=== PATIENT | female | born 1995 | race African-American/Black ===

== ENCOUNTER 2018-05-08 20:39 | Emergency (ER) | payer BC, OTHER ==
[2018-05-08 20:48] VITALS: BP 124/71
--- NOTE | 2018-05-08 20:59 | ED ---
Lower Extremity - HPI Summary HPI Summary: 22 year old female presents with left great toe injury today. She states that she feel down the stairs. She has an abrasion to her left jasmine. pain in the IP joint of left toe. no ankle pain. is able to ambulate. no numbness or tingling. no other injury. - History of Current Complaint Chief Complaint: UCLowerExtremity Stated Complaint: TOE INJURY Time Seen by Provider: 05/08/18 20:42 Hx Last Menstrual Period: has mirena - irregular. last was 1 month ago Pain Intensity: 4 - Allergies/Home Medications Allergies/Adverse Reactions: Allergies Allergy/AdvReac Type Severity Reaction Status Date / Time No Known Allergies Allergy Verified 05/08/18 20:49 Home Medications: Home Medications Levonorgestrel (Iud) [Mirena IUD] 20 mcg 05/08/18 [History] PMH/Surg Hx/FS Hx/Imm Hx Endocrine/Hematology History: Denies: Hx Diabetes, Hx Thyroid Disease Cardiovascular History: Denies: Hx Congestive Heart Failure, Hx Hypertension Respiratory History: Denies: Hx Asthma, Hx Chronic Obstructive Pulmonary Disease (COPD) GI History: Denies: Hx Ulcer - Immunization History Date of Tetanus Vaccine: Up to date Date of Influenza Vaccine: None Infectious Disease History: No Infectious Disease History: Denies: Hx Hepatitis, Hx Human Immunodeficiency Virus (HIV), Traveled Outside the [place] in Last 30 Days - Family History Known Family History: Negative: Diabetes - Social History Alcohol Use: Rare Substance Use Type: Reports: None Smoking Status (MU): Never Smoked Tobacco Review of Systems Negative: Fever Negative: Chest Pain Negative: Shortness Of Breath Positive: Myalgia - left great toe injury All Other Systems Reviewed And Are Negative: Yes Physical Exam Triage Information Reviewed: Yes Vital Signs On Initial Exam: Initial Vitals Temp Pulse Resp BP Pulse Ox 99.7 F 73 14 124/71 100 05/08/18 20:44 05/08/18 20:44 05/08/18 20:44 05/08/18 20:44 05/08/18 20:44 Vital Signs Reviewed: Yes Appearance: Positive: Well-Appearing Skin: Positive: Warm, Dry, Other - abrasion to left jasmine Head/Face: Positive: Normal Head/Face Inspection Eyes: Positive: Normal, Conjunctiva Clear ENT: Positive: Pharynx normal Respiratory/Lung Sounds: Positive: Clear to Auscultation, Breath Sounds Present Cardiovascular: Positive: Normal, RRR Musculoskeletal: Positive: Limited @ - left great toe, Other - tenderness left great toe, capillary refill<2 secs Neurological: Positive: Normal Psychiatric: Positive: Normal Diagnostics - Vital Signs Vital Signs Temp Pulse Resp BP Pulse Ox 05/08/18 20:44 99.7 F 73 14 124/71 100 - Laboratory Lab Statement: Any lab studies that have been ordered have been reviewed, and results considered in the medical decision making process. - Radiology toe Radiology Interpretation Completed By: ED Physician Summary of Radiographic Findings: no fx Lower Extremity Course/Dx - Course Course Of Treatment: 22 year old female presents with left great toe injury today after falling down the stairs. pain in IP joint. neuorvascular intact. gave bandaide for abrasion of left jasmine. able to ambulate. no other injury. xray shows no fx. told to treat with rice. patient understand and agrees with plan. - Diagnoses Differential Diagnosis/HQI/PQRI: Positive: Fracture (Closed), Sprain, Strain Provider Diagnoses: Injury of left great toe Discharge - Sign-Out/Discharge Documenting (check all that apply): Patient Departure All imaging exams completed and their final reports reviewed: No - Discharge Plan Condition: Good Disposition: HOME Patient Education Materials: R.I.C.E. Treatment (ED) Referrals: Bernardino Pineda MD [Medical Doctor] - [facility] [place] [facility] [place]] Additional Instructions: Wear hard sole shoes Ice, elevate Take Tylenol or ibuprofen for pain every 6 hours as needed Follow up with ortho if no improvement Return to ED if develop or any new or worsening symptoms - Billing Disposition and Condition Condition: GOOD Disposition: Home
--- NOTE | 2018-05-09 08:25 | UC ---
- Progress Note Progress Note: Radiology read reviewed. No fracture. No change in management. Course/Dx - Diagnoses Provider Diagnoses: Injury of left great toe Discharge - Sign-Out/Discharge Documenting (check all that apply): Post-Discharge Follow Up All imaging exams completed and their final reports reviewed: Yes - Discharge Plan Condition: Good Disposition: HOME Patient Education Materials: R.I.C.E. Treatment (ED) Referrals: [facility] [place] [facility] [Outside] Bernardino Pineda MD [Medical Doctor] - Additional Instructions: Wear hard sole shoes Ice, elevate Take Tylenol or ibuprofen for pain every 6 hours as needed Follow up with ortho if no improvement Return to ED if develop or any new or worsening symptoms - Billing Disposition and Condition Condition: GOOD Disposition: Home
== END 2018-05-08 21:11 | disposition home or self-care (01) ==
LOC: UCEAST 20:39
DX: S99.922A Unspecified injury of left foot, initial encounter (principal); W10.9XXA Fall (on) (from) unspecified stairs and steps, initial encounter; Y92.9 Unspecified place or not applicable
CPT/HCPCS: 99201; G0463